=== PATIENT | female | born 1950 | race African-American/Black ===

== ENCOUNTER 2023-12-11 20:31 | Emergency (ER) | payer BC, OTHER ==
[2023-12-11 20:43] VITALS: BP 159/86; PULSE 81; RESP 18; TEMP 98.2; BMI 29.2
[2023-12-11] MEDS ORDERED: ACETAMINOPHEN 325 MG TABLET (FP) PO ONE (21:07)
[2023-12-11] MEDS ORDERED: ACETAMINOPHEN 325 MG TABLET (FP) ONE (21:13)
== END 2023-12-11 22:14 | disposition home or self-care (01) ==
LOC: JERFT 20:31 → JER 20:31 → JERFT 22:14
DX: M25.511 Pain in right shoulder (principal)
CPT/HCPCS: 73030-TC-RT-FY; 99283-25